=== PATIENT | male | born 1960 | race Caucasian/White ===

== ENCOUNTER 2022-02-11 09:35 | Outpatient (REF) | payer OTHER, SELFPAY ==
[2022-02-11 10:26] LABS: MANUAL DIFF FLAG NO
[2022-02-11 10:28] LABS: Basophils Absolute Auto 0.1 X10*3/uL (0.0-0.2); Eosinophils Absolute Auto 0.3 X10*3/uL (0.0-0.4); Eosinophils Percent Auto 5.1 % (0-4); Hemoglobin 12.3 g/dl (14.0-18.0); Imm Gran Abs Auto 0.01 X10*3/uL (0.00-0.03); Imm Gran Pct Auto 0.2 % (0.0-0.4); Lymphocytes Absolute Auto 1.1 X10*3/uL (1.2-4.9); Lymphocytes Percent Auto 17.8 % (20-40); Mean Corpuscular HGB Conc 34.2 g/dl (31.0-36.0); Mean Corpuscular Hemoglobin 30.3 pg (27.0-33.0); Mean Corpuscular Volume 88.7 fL (80.0-98.0); Mean Platelet Volume 10.5 fL (9.4-12.4); Monocytes Absolute Auto 0.6 X10*3/uL (0.1-1.2); Monocytes Percent Auto 8.8 % (2-11); Neutrophils Absolute Auto 4.2 x10*3/uL (2.0-8.3); Neutrophils Percent Auto 67.1 % (45-73); Platelet Count 322 X10*3/uL (160-400); Red Blood Count 4.06 X10*6/uL (4.60-5.80); Red Cell Distribution Width 13.3 % (11.0-16.0); White Blood Count 6.3 X10*3/uL (4.8-10.8)
[2022-02-11 10:44] LABS: Alanine Aminotransferase 15 U/L (0-40); Albumin Level 3.9 g/dL (3.5-5.0); Alkaline Phosphatase 113 U/L (39-117); Anion Gap 11 (12-20); Aspartate Amino Transferase 20 U/L (5-37); Bilirubin Total 0.4 mg/dL (0.0-1.0); Blood Urea Nitrogen 9 mg/dL (9-16); Calcium 8.6 mg/dL (8.4-10.2); Carbon Dioxide 24 mmol/L (22-29); Chloride 104 mmol/L (96-108); Cholesterol 152 mg/dL; Estimated Glomerular Filt Rate > 60; Glucose Fasting 90 mg/dL (60-99); HDL Cholesterol 69 mg/dL; LDL Cholesterol Calculated 75 mg/dl; Potassium 4.4 mmol/L (3.3-5.1); Sodium 135 mmol/L (135-145); Total Protein 6.3 g/dL (6.5-8.0); Triglycerides 40 mg/dL
[2022-02-11 10:56] LABS: Appearance Urine CLEAR; Color Urine STRAW; Glucose Urine UA NEG (NEG); Leukocyte Esterase Urine NEG (NEG); Nitrite Urine NEG (NEG); Specific Gravity - Urine <= 1.005 (1.005-1.025); Urine Blood TRACE (NEG); Urine Ketones NEG (NEG); Urine Protein NEG (NEG-TRACE)
[2022-02-11 11:03] LABS: Prostate Specific Antigen Scr 0.52 ng/mL (<0.05-4.0); TSH reflex Free T4 1.69 uIU/mL (0.32-4.0)
[2022-02-11 11:54] LABS: RBC Urine 0-2 /HPF (0); Squamous Epithelial Cell Urine TRACE /LPF; WBC Urine 0 /HPF (0-4)
== END 2022-02-11 09:36 | disposition home or self-care (01) ==
LOC: HO.WFDLDS 09:35
PROVIDERS: Visit Provider Family Medicine
DX: Z00.00 Encounter for general adult medical examination without abnormal findings (principal); Z12.5 Encounter for screening for malignant neoplasm of prostate
CPT/HCPCS: 36415; 80053; 80061; 81001; 84153; 84443; 85025

== ENCOUNTER 2022-06-01 09:52 | Outpatient (REF) | payer OTHER, SELFPAY ==
[2022-06-01 11:16] LABS: MANUAL DIFF FLAG NO
[2022-06-01 11:31] LABS: Basophils Absolute Auto 0.1 X10*3/uL (0.0-0.2); Basophils Percent Auto 0.9 % (0-2); Eosinophils Absolute Auto 0.2 X10*3/uL (0.0-0.4); Eosinophils Percent Auto 4.1 % (0-4); Hematocrit 37.3 % (42.0-52.0); Hemoglobin 12.4 g/dl (14.0-18.0); Imm Gran Abs Auto 0.02 X10*3/uL (0.00-0.03); Imm Gran Pct Auto 0.4 % (0.0-0.4); Lymphocytes Absolute Auto 1.6 X10*3/uL (1.2-4.9); Lymphocytes Percent Auto 28.3 % (20-40); Mean Corpuscular HGB Conc 33.2 g/dl (31.0-36.0); Mean Corpuscular Hemoglobin 29.3 pg (27.0-33.0); Mean Corpuscular Volume 88.2 fL (80.0-98.0); Mean Platelet Volume 10.5 fL (9.4-12.4); Monocytes Absolute Auto 0.6 X10*3/uL (0.1-1.2); Monocytes Percent Auto 10.5 % (2-11); Neutrophils Absolute Auto 3.1 x10*3/uL (2.0-8.3); Neutrophils Percent Auto 55.8 % (45-73); Platelet Count 325 X10*3/uL (160-400); Red Blood Count 4.23 X10*6/uL (4.60-5.80); Red Cell Distribution Width 13.2 % (11.0-16.0); Retic HGB Equivalent 35.6 pg (30.0-35.0); Reticulocyte Percent 1.1 % (0.5-1.8); Reticulocytes Absolute 0.047 X10*6/uL (0.026-0.095); White Blood Count 5.6 X10*3/uL (4.8-10.8)
[2022-06-01 12:41] LABS: Anion Gap 15 (12-20); Blood Urea Nitrogen 9 mg/dL (9-16); Calcium 8.9 mg/dL (8.4-10.2); Carbon Dioxide 23 mmol/L (22-29); Chloride 102 mmol/L (96-108); Estimated Glomerular Filt Rate > 60; Glucose Random 87 mg/dL (60-115); Iron 58 mcg/dL (45-160); Percent Iron Saturation 18 % (15-50); Potassium 4.6 mmol/L (3.3-5.1); Sodium 135 mmol/L (135-145); Total Iron Binding Capacity 322 mcg/dL (228-428); Unsaturated Iron Binding 264 ug/dL
[2022-06-01 12:47] LABS: Vitamin B12 223 pg/mL (200-900)
[2022-06-01 13:16] LABS: Ferritin 21 ng/mL (20-250)
== END 2022-06-01 09:53 | disposition home or self-care (01) ==
LOC: HO.WFDLDS 09:52
PROVIDERS: Visit Provider Family Medicine
DX: Z00.00 Encounter for general adult medical examination without abnormal findings (principal); E53.8 Deficiency of other specified B group vitamins; D64.9 Anemia, unspecified
CPT/HCPCS: 36415; 80048; 82607; 82728; 82746; 83540; 85025; 85045

== ENCOUNTER 2022-12-07 08:40 | Outpatient (REF) | payer MEDICARE, MEDICAID, SELFPAY ==
[2022-12-07 12:38] LABS: MANUAL DIFF FLAG NO
[2022-12-07 12:50] LABS: Basophils Absolute Auto 0.1 X10*3/uL (0.0-0.2); Basophils Percent Auto 0.9 % (0-2); Eosinophils Absolute Auto 0.1 X10*3/uL (0.0-0.4); Hematocrit 37.3 % (42.0-52.0); Hemoglobin 12.5 g/dl (14.0-18.0); Imm Gran Abs Auto 0.01 X10*3/uL (0.00-0.03); Imm Gran Pct Auto 0.2 % (0.0-0.4); Lymphocytes Absolute Auto 0.9 X10*3/uL (1.2-4.9); Lymphocytes Percent Auto 16.8 % (20-40); Mean Corpuscular HGB Conc 33.5 g/dl (31.0-36.0); Mean Corpuscular Hemoglobin 29.6 pg (27.0-33.0); Mean Corpuscular Volume 88.4 fL (80.0-98.0); Mean Platelet Volume 10.6 fL (9.4-12.4); Monocytes Absolute Auto 0.5 X10*3/uL (0.1-1.2); Monocytes Percent Auto 9.4 % (2-11); Neutrophils Percent Auto 70.7 % (45-73); Platelet Count 340 X10*3/uL (160-400); Red Blood Count 4.22 X10*6/uL (4.60-5.80); Red Cell Distribution Width 13.3 % (11.0-16.0); White Blood Count 5.6 X10*3/uL (4.8-10.8)
[2022-12-07 13:26] LABS: Anion Gap 11 (12-20); Blood Urea Nitrogen 9 mg/dL (9-16); Carbon Dioxide 26 mmol/L (22-29); Chloride 102 mmol/L (96-108); Estimated Glomerular Filt Rate > 60; Glucose Random 86 mg/dL (60-115); Potassium 4.4 mmol/L (3.3-5.1); Sodium 135 mmol/L (135-145)
== END 2022-12-07 08:41 | disposition home or self-care (01) ==
LOC: HO.WFDLDS 08:40
PROVIDERS: Visit Provider Family Medicine
DX: Z00.00 Encounter for general adult medical examination without abnormal findings (principal); I10 Essential (primary) hypertension; D64.9 Anemia, unspecified
CPT/HCPCS: 36415; 80048; 85025

== ENCOUNTER 2023-03-15 09:57 | Outpatient (REF) | payer MEDICARE, MEDICAID, SELFPAY ==
[2023-03-15 11:37] LABS: Appearance Urine Clear; Color Urine Yellow; Glucose Urine UA Negative (Negative); Leukocyte Esterase Urine Negative (Negative); Nitrite Urine Negative (Negative); Specific Gravity - Urine <= 1.005 (1.005-1.025); Urine Blood Negative (Negative); Urine Ketones Negative (Negative); Urine Protein Negative (Neg-Trace)
[2023-03-15 11:50] LABS: MANUAL DIFF FLAG NO
[2023-03-15 11:55] LABS: Basophils Absolute Auto 0.1 X10*3/uL (0.0-0.2); Eosinophils Absolute Auto 0.2 X10*3/uL (0.0-0.4); Eosinophils Percent Auto 4.6 % (0-4); Hematocrit 37.2 % (42.0-52.0); Hemoglobin 12.4 g/dl (14.0-18.0); Imm Gran Abs Auto 0.01 X10*3/uL (0.00-0.03); Imm Gran Pct Auto 0.2 % (0.0-0.4); Lymphocytes Absolute Auto 1.2 X10*3/uL (1.2-4.9); Lymphocytes Percent Auto 23.1 % (20-40); Mean Corpuscular HGB Conc 33.3 g/dl (31.0-36.0); Mean Corpuscular Hemoglobin 30.1 pg (27.0-33.0); Mean Corpuscular Volume 90.3 fL (80.0-98.0); Mean Platelet Volume 10.8 fL (9.4-12.4); Monocytes Absolute Auto 0.5 X10*3/uL (0.1-1.2); Monocytes Percent Auto 10.1 % (2-11); Neutrophils Absolute Auto 3.2 x10*3/uL (2.0-8.3); Platelet Count 290 X10*3/uL (160-400); Red Blood Count 4.12 X10*6/uL (4.60-5.80); Red Cell Distribution Width 13.2 % (11.0-16.0); White Blood Count 5.2 X10*3/uL (4.8-10.8)
[2023-03-15 13:27] LABS: Alanine Aminotransferase 21 U/L (0-40); Alkaline Phosphatase 114 U/L (39-117); Anion Gap 9 (12-20); Aspartate Amino Transferase 26 U/L (5-37); Bilirubin Total 0.3 mg/dL (0.0-1.0); Blood Urea Nitrogen 12 mg/dL (9-16); Calcium 8.8 mg/dL (8.4-10.2); Carbon Dioxide 26 mmol/L (22-29); Chloride 103 mmol/L (96-108); Cholesterol 151 mg/dL; Estimated Glomerular Filt Rate > 60; Glucose Fasting 74 mg/dL (60-99); HDL Cholesterol 75 mg/dL; LDL Cholesterol Calculated 70 mg/dl; Sodium 134 mmol/L (135-145); Total Protein 6.4 g/dL (6.5-8.0); Triglycerides 31 mg/dL
[2023-03-15 13:56] LABS: Creatinine Urine 23.55 mg/dL; Microalbumin Urine < 5.0 mg/L
== END 2023-03-15 09:58 | disposition home or self-care (01) ==
LOC: HO.WFDLDS 09:57
PROVIDERS: Visit Provider Family Medicine
DX: Z00.00 Encounter for general adult medical examination without abnormal findings (principal); Z12.5 Encounter for screening for malignant neoplasm of prostate; I10 Essential (primary) hypertension
CPT/HCPCS: 36415; 80053; 80061; 81003; 82043; 84153; 84443; 85025

== ENCOUNTER 2023-04-04 13:57 | Outpatient (AMB) | payer MEDICARE, MEDICAID, SELFPAY ==
--- NOTE | 2023-04-04 14:08 | MHC.PC.OV ---
Vital Signs 04/04/23 14:09 Height 5 ft 10 in Weight 154 lb 8 oz BMI 22.2 BP 130/78 Blood Pressure Location Lt brachial Position Sitting Respiration 12 Pulse 69 Pulse Source Pulse Oximeter Temp 98 F Temp Source Temporal Artery Scan Pulse Oximetry (%) 99 Oxygen Delivery Method Room Air Intake Visit Reasons: CPE with f/u labs and health maint. Intake Note: Patient does not have any question or concerns at this time. 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 HPI Details 62 y/o male presents for an extended exam with f/u labs and health maintenance. Labs were drawn 03/15/23. Reviewed labs with pt. Mild chronic anemia. Mildly low sodium at 134. Triglycerides 31. TC 151. LDL 70. HDL 75. Pt works on a healthy diet. He exercises daily. Pt reports osteoarthritis R knee. [facility] Medical History No pertinent past medical history Surgical History H/O arthroscopy of right knee Family History Other Substance use disorder Social History Housing: House Patient Tobacco Use Status: Former Tobacco user Tobacco use type: Cigarette Cigarette Packs Per Day: 1 Years Smoked: 25 Packs Per Year: 25 e-Cigarette/Vaping Use: Never Used Second Hand Smoke Exposure: No service: No Current occupational status: employed Current occupation: retail Current occupational exposures/hazards: No Cognitive needs: No Hearing needs: No Vision needs: Yes Questionnaire PHQ-9 Over the last 2 weeks, how often have you been bothered by any of the following problems? 1. Little interest or pleasure in doing things: not at all 2. Feeling down, depressed, or hopeless: not at all 3. Trouble falling or staying asleep, or sleeping too much: several days 4. Feeling tired or having little energy: several days 5. Poor appetite or overeating: several days 6. Feeling bad about yourself - or that you are a failure or have let yourself or your family down: not at all 7. Trouble concentrating on things, such as reading the newspaper or watching television: not at all 8. Moving or speaking so slowly that other people could have noticed. Or the opposite - being so fidgety or restless that you have been moving around a lot more than usual: not at all 9. Thoughts that you would be better off or of hurting yourself in some way: not at all Total score: 3 Source: Developed by Drs. Jameson Dasilva, Naty Barroso, Marck Pa and colleagues, with an educational emeterio from [employer]. Thrive Questionnaire Date Thrive assessed: 04/04/23 I am a: Patient What is your living situation today?: I have a steady place to live Within the past 12 months, did the food you bought not last and you didn't have the money to get more?: Never true Within the past 12 months, did you worry whether your food would run out before you got money to buy more?: Never true Do you have trouble paying for medicines?: No Do you have trouble getting transportation to medical appointments?: No Do you have trouble paying your heating and electricity bill?: No Do you have trouble taking care of your child, family member or friend?: No Do you have trouble with day-to-day activities such as bathing, preparing meals, shopping, managing finances, etc.?: No Are you currently unemployed and looking for a job?: No Are you interested in more education?: Yes Please select the resources that you would like help with: Education Currently or been in a relationship where the following occur: no concerns reported AUDIT C Alcohol Use Questionnaire (AUDIT-C) 1. How often do you have a drink containing alcohol?: Never 3. How often do you have six or more drinks on one occasion?: Never Total Score: 0 DIANNA-7 AMB Questionnaire DIANNA-7 Date DIANNA - 7 assessed: 04/04/23 Feeling nervous, anxious, or on edge: 1 = Several days Not being able to stop or control worryin = Not at all Worrying too much about different things: 1 = Several days Trouble relaxin = Several days Being so restless that it is hard to sit still: 0 = Not at all Becoming easily annoyed or irritable: 1 = Several days Feeling afraid as if something awful might happen: 0 = Not at all Total DIANNA-7 score (0-4 normal; 5-9 mild; 10-14 moderate; 15-21 severe): 4 Source: Developed by Drs. Jameson Dasilva, Naty Barroso, Marck Pa and colleagues, with an educational emeterio from [employer]. Review of Systems Const Denies chills, Denies fatigue, Denies fever(s), Denies headache(s) and Denies weakness Eyes Denies change in vision ENT Denies dizziness, Denies headache(s), Denies hearing loss, Denies nasal congestion, Denies sinus pain, Denies sinus pressure and Denies sore throat Card Denies chest pain, Denies lightheadedness, Denies dyspnea and Denies other (palpitations) Resp Denies cough, Denies dyspnea and Denies wheezing GI Denies abdominal pain, Denies melena, Denies hematochezia, Denies change in bowel habits, Denies dyspepsia and Denies nausea Denies hematuria and Denies dysuria Musc Denies abnormal gait, Denies myalgias, Denies arthralgias, Denies numbness and Denies tingling Skin/Breast Denies rash, Denies unusual bruising and Denies wounds Neuro Denies abnormal gait, Denies dizziness, Denies headache(s), Denies memory loss, Denies numbness, Denies Sensory deficit (Neuro), Denies tingling and Denies weakness Psych Denies anxiety, Denies depression and Denies memory loss Endo Denies cold intolerance, Denies fatigue, Denies heat intolerance, Denies polydipsia and Denies polyuria [place]/Lymph Denies easy bleeding and Denies easy bruising Aller/Immun Denies wheezing Physical exam (Primary Care) Vital Signs: Last Vital Signs Temp 98 F 08/14/23 14:09 Pulse 69 04/04/23 14:09 Resp 12 04/04/23 14:09 BP 130/78 04/04/23 14:09 Pulse Ox 99 04/04/23 14:09 Oxygen Delivery Method Room Air 04/04/23 14:09 BMI result Body Mass Index 22.2 Tobacco/Smoking Status: Tobacco use Status Tobacco use date assessed 07/26/22 04/04/23 14:15 Patient Tobacco Use Status Former Tobacco user 04/04/23 14:15 Tobacco use type Cigarette 04/04/23 14:15 e-Cigarette/Vaping Use Never Used 04/04/23 14:15 PHQ-9: PHQ-9 Score PHQ-9: Total score 3 04/04/23 14:24 Thrive Assessment: Date of Thrive Assessment Date Thrive assessed 04/04/23 04/04/23 14:19 Currently or been in a relationship where the following occur: no concerns reported Const General: no acute distress, well developed, alert and awake Nutritional Appearance: well nourished Orientation/consciousness: patient oriented x3 HENMT Head: Yes normocephalic and Yes atraumatic Ears: hearing grossly normal bilaterally and TM's normal bilaterally General nose exam: Normal external nose present and Normal nares present Mouth: Normal oral and palatal mucosa present and moist mucous membranes Teeth and gingiva: dentition normal Throat: Yes posterior oropharynx normal Eyes General: appearance normal, both eyes and all related structures Pupils: Equal, round and reactive pupils present and Pupil accommodation reflex normal EOM: EOMs intact bilaterally Neck Neck: Yes normal visual inspection, Yes no lymphadenopathy and Yes trachea midline Thyroid: Thyroid normal Carotids: no bruits Lymphatic: no lymphadenopathy noted Chest Chest palpation & inspection: normal inspection of the chest Resp Effort & Inspection: normal respiratory effort Auscultation: clear to auscultation bilaterally Cardio Rate: regular rate Rhythm: regular rhythm Heart sounds: S1 normal heart sound present, S2 normal heart sound present, no gallops, no murmurs and no rubs Bruits: no abdominal aortic bruits and no carotid bruits GI Palpation (GI): No Abdominal aortic bruit present, Soft to palpation, nontender, No hepatosplenomegaly present and No Rebound tenderness present Auscultation: normal bowel sounds General: Yes no CVA tenderness Back/Spine/Pelvis Back: no CVA tenderness Cervical Spine: cervical ROM normal and No Cervical spine tenderness Thoracic/Lumbar Spine: thoraco-lumbar ROM normal, No pain with thoraco-lumbar ROM, No thoracic spinal tenderness and No lumbar spinal tenderness Skin Lesions: no lesions Rashes: no rashes Trauma: no lacerations or abrasions Wounds: no wounds Nails: normal Neuro General: patient oriented x3 Cranial nerves: Yes Equal, round and reactive pupils present Cognition (Neuro): normal cognition Gait exam (Neuro): Normal gait present Motor exam (neuro): 5/5 motor strength present throughout Sensory Exam: No Sensory deficit (Neuro) Deep tendon reflexes (DTR's): Right patellar reflex intensity grade: 2+ and Left patellar reflex intensity grade: 2+ Extrem General: Yes normal to inspection and No edema Psych Appearance: grossly normal Affect: normal affect Attitude: cooperative Thought process: Normal thought process present Assessment and Plan Assessment & Plan (1) Mild anemia: Code(s): D64.9 - Anemia, unspecified Plan: Stable Will continue to follow (2) Hypertension: Code(s): I10 - Essential (primary) hypertension Plan: Blood pressure mildly elevated We can follow this Encouraged healthy diet and exercise (3) Hyponatremia: Code(s): E87.1 - Hypo-osmolality and hyponatremia Plan: Mild hyponatremia which may be secondary to his medications Encouraged regular meals (4) Right knee pain: Code(s): M25.561 - Pain in right knee Plan: Primarily secondary to osteoarthritis Can continue using knee brace for support but encouraged exercise of legs and continue cycling as tolerated (5) Screening for colon cancer: Code(s): Z12.11 - Encounter for screening for malignant neoplasm of colon Plan: Patient says he had a Cologuard test about 2 years ago and that it was normal Will check Cologuard test again next year (6) Screening for prostate cancer: Code(s): Z12.5 - Encounter for screening for malignant neoplasm of prostate Plan: PSA was within normal limits (7) Adult general medical exam: Code(s): Z00.00 - Encounter for general adult medical examination without abnormal findings Plan 62-year-old male presents for an extended exam Encouraged healthy diet with active lifestyle and plenty of exercise. Patient continues cycling and regular exercise. Coding Level of Care Code Est Pt Level 4 (07227) Diagnoses Mild anemia D64.9 Hypertension I10 Hyponatremia E87.1 Right knee pain M25.561 Screening for colon cancer Z12.11 Screening for prostate cancer Z12.5 Adult general medical exam Z00.00
[2023-04-04 14:09] VITALS: BP 130/78; PULSE 69; RESP 12; TEMP 36.6; O2SAT 99; BMI 22.2
== END 2023-04-04 14:37 | disposition home or self-care (01) ==
PROVIDERS: Visit Provider Family Medicine
DX: D64.9 Anemia, unspecified (principal); I10 Essential (primary) hypertension; E87.1 Hypo-osmolality and hyponatremia; M25.561 Pain in right knee; Z12.11 Encounter for screening for malignant neoplasm of colon; Z12.5 Encounter for screening for malignant neoplasm of prostate; Z00.00 Encounter for general adult medical examination without abnormal findings
CPT/HCPCS: 99214

== ENCOUNTER 2024-03-13 10:07 | Outpatient (REF) | payer MEDICARE, MEDICAID, SELFPAY ==
[2024-03-13 11:15] LABS: MANUAL DIFF FLAG NO
[2024-03-13 11:24] LABS: Appearance Urine Clear; Color Urine Yellow; Glucose Urine UA Negative (Negative); Leukocyte Esterase Urine Negative (Negative); Nitrite Urine Negative (Negative); PH 6.5 (5.0-9.0); Specific Gravity - Urine <= 1.005 (1.005-1.025); Urine Blood Negative (Negative); Urine Ketones Negative (Negative); Urine Protein Negative (Neg-Trace)
[2024-03-13 11:28] LABS: Basophils Percent Auto 0.7 % (0-2); Eosinophils Absolute Auto 0.1 X10*3/uL (0.0-0.4); Eosinophils Percent Auto 2.4 % (0-4); Hematocrit 37.4 % (42.0-52.0); Hemoglobin 12.6 g/dl (14.0-18.0); Imm Gran Abs Auto 0.01 X10*3/uL (0.00-0.03); Imm Gran Pct Auto 0.2 % (0.0-0.4); Lymphocytes Absolute Auto 1.3 X10*3/uL (1.2-4.9); Mean Corpuscular HGB Conc 33.7 g/dl (31.0-36.0); Mean Corpuscular Hemoglobin 30.7 pg (27.0-33.0); Mean Platelet Volume 10.9 fL (9.4-12.4); Monocytes Absolute Auto 0.5 X10*3/uL (0.1-1.2); Monocytes Percent Auto 8.7 % (2-11); Neutrophils Absolute Auto 3.6 x10*3/uL (2.0-8.3); Platelet Count 278 X10*3/uL (160-400); Red Blood Count 4.11 X10*6/uL (4.60-5.80); Red Cell Distribution Width 13.9 % (11.0-16.0); White Blood Count 5.5 X10*3/uL (4.8-10.8)
[2024-03-13 12:19] LABS: Alanine Aminotransferase 17 U/L (0-40); Albumin Level 4.2 g/dL (3.5-5.0); Alkaline Phosphatase 86 U/L (39-117); Anion Gap 12 (12-20); Aspartate Amino Transferase 20 U/L (5-37); Bilirubin Total 0.4 mg/dL (0.0-1.0); Blood Urea Nitrogen 8 mg/dL (9-16); Calcium 9.4 mg/dL (8.4-10.2); Carbon Dioxide 25 mmol/L (22-29); Chloride 100 mmol/L (96-108); Cholesterol 153 mg/dL (<200); Estimated Glomerular Filt Rate > 60; Glucose Fasting 85 mg/dL (60-99); HDL Cholesterol 72 mg/dL (>40); LDL Cholesterol Calculated 72 mg/dL (<100); Potassium 4.2 mmol/L (3.3-5.1); Sodium 133 mmol/L (135-145); Total Protein 6.7 g/dL (6.5-8.0); Triglycerides 46 mg/dL (<150)
[2024-03-13 12:23] LABS: Creatinine Urine 20.45 mg/dL; Microalbumin Urine < 5.0 mg/L
[2024-03-13 12:39] LABS: TSH reflex Free T4 1.94 uIU/mL (0.32-4.0)
== END 2024-03-13 10:08 | disposition home or self-care (01) ==
LOC: HO.WFDLDS 10:07
PROVIDERS: Visit Provider Family Medicine
DX: Z00.00 Encounter for general adult medical examination without abnormal findings (principal); I10 Essential (primary) hypertension
CPT/HCPCS: 36415; 80053; 80061; 81003; 82043; 82570; 84443; 85025

== ENCOUNTER 2024-04-24 10:06 | Outpatient (AMB) | payer MEDICARE, MEDICAID, SELFPAY ==
--- NOTE | 2024-04-24 10:11 | MHC.PC.OV ---
Vital Signs 04/24/24 10:19 Height 5 ft 10 in Weight 156 lb 2 oz BMI 22.4 BP 148/88 H Blood Pressure Location Rt brachial Position Sitting Respiration 16 Pulse 54 Pulse Source Pulse Oximeter Temp 97.4 F Temp Source Oral Pulse Oximetry (%) 97 Oxygen Delivery Method Room Air Intake Visit Reasons: Extended exam with f/u labs and health maintenance Intake Note: patient here for extended exam with follow up labs and health maintenance. [employer] Consultant Required: No Allergies haloperidol [From Haldol] Allergy (Severe, Verified 04/24/24 10:27) Involuntary Spasms Penicillins Allergy (Intermediate, Verified 04/24/24 10:27) Hives Medication List - Last Reconciled 04/24/24 by Gerald Bar CNP benztropine 0.5 mg PO DAILY perphenazine 2 mg PO BID Tobacco use date assessed: 04/24/24 Dental Screening Dental Screen Date: 04/24/24 Did you have a dental visit in the last 12 months?: No Did you have a dental problem in the last 6 months where you did not have access to dental care?: No Was dental information given to patient?: No HPI HPI Comments History of Present Illness Details 63-year-old male presents for an extended physical exam He is a patient of Dr. Chery He has history of hypertension (not treated with medication), mild chronic anemia, mild hyponatremia, osteoarthritis of the right knee, and schizophrenia He notes that he was on Benazepril for a short period 2 years ago; his blood pressure was controlled He admits to taking his medications as prescribed without adverse reactions He is not followed by a therapist or psychiatrist He states that he generally eats and sleeps well. He exercises routinely Former smoker. Does not drink alcohol. No recreational drug He notes that his last Cologuard test was 3 years ago: negative He notes that he has never been vaccinated for shingles He has not seen a dentist for over a year He has not had a tetanus vaccine in over 10 years He has not had an eye exam in a long time He notes that he is followed by [facility] and has been receiving plasma and stem-cells injections in his right knee with good effects PFSH Medical History No pertinent past medical history Surgical History H/O arthroscopy of right knee Family History Other Substance use disorder Social History Housing: House Patient Tobacco Use Status: Former Tobacco user Tobacco use type: Cigarette Cigarette Packs Per Day: 1 Years Smoked: 25 e-Cigarette/Vaping Use: Never Used Second Hand Smoke Exposure: No service: No Current occupational status: employed Current occupation: [employer] Current occupational exposures/hazards: No Cognitive needs: No Hearing needs: No Vision needs: Yes Questionnaire PHQ-9 Over the last 2 weeks, how often have you been bothered by any of the following problems? 1. Little interest or pleasure in doing things: not at all 2. Feeling down, depressed, or hopeless: not at all 3. Trouble falling or staying asleep, or sleeping too much: not at all 4. Feeling tired or having little energy: not at all 5. Poor appetite or overeating: not at all 6. Feeling bad about yourself - or that you are a failure or have let yourself or your family down: not at all 7. Trouble concentrating on things, such as reading the newspaper or watching television: not at all 8. Moving or speaking so slowly that other people could have noticed. Or the opposite - being so fidgety or restless that you have been moving around a lot more than usual: not at all 9. Thoughts that you would be better off or of hurting yourself in some way: not at all Total score: 0 Depression Screening Interpretation: Negative Depression Screening Done: Yes 41463 - PHQ-9 Billing: Yes Source: Developed by Drs. Jameson Dasilva, Naty Barroso, Marck Pa and colleagues, with an educational emeterio from [employer]. Thrive Questionnaire Date Thrive assessed: 04/24/24 I am a: Patient What is your living situation today?: I have a steady place to live Within the past 12 months, did the food you bought not last and you didn't have the money to get more?: Never true Within the past 12 months, did you worry whether your food would run out before you got money to buy more?: Never true Do you have trouble paying for medicines?: No Do you have trouble getting transportation to medical appointments?: No Do you have trouble paying your heating and electricity bill?: No Do you have trouble taking care of your child, family member or friend?: No Do you have trouble with day-to-day activities such as bathing, preparing meals, shopping, managing finances, etc.?: No Are you currently unemployed and looking for a job?: No Are you interested in more education?: Yes Please select the resources that you would like help with: Education Currently or been in a relationship where the following occur: No concerns reported THRIVE Score: 0 AUDIT C Alcohol Use Questionnaire (AUDIT-C) 1. How often do you have a drink containing alcohol?: Never Total Score: 0 Score Reviewed/Action Taken: Yes DIANNA-7 AMB Questionnaire DIANNA-7 Date DIANNA - 7 assessed: 04/24/24 Feeling nervous, anxious, or on edge: 0 = Not at all Not being able to stop or control worryin = Not at all Worrying too much about different things: 0 = Not at all Trouble relaxin = Not at all Being so restless that it is hard to sit still: 0 = Not at all Becoming easily annoyed or irritable: 0 = Not at all Feeling afraid as if something awful might happen: 0 = Not at all Total DIANNA-7 score (0-4 normal; 5-9 mild; 10-14 moderate; 15-21 severe): 0 Source: Developed by Drs. Jameson Dasilva, Naty Barroso, Marck Pa and colleagues, with an educational emeterio from [employer]. DIANNA-7 Assessment Billing DIANNA-7 Assessment Tool: DIANNA-7 Assessment 14068 Review of Systems Const Details: Denies chills, Denies fatigue, Denies fever(s), Denies headache(s) and Denies weakness HEENT Denies change in vision, Denies dizziness, Denies headache(s), Denies hearing loss, Denies nasal congestion, Denies sinus pain, Denies sinus pressure and Denies sore throat Card Denies chest pain, Denies lightheadedness, Denies dyspnea and Denies other (palpitations) Resp Denies cough, Denies dyspnea and Denies wheezing GI Denies abdominal pain, Denies melena, Denies hematochezia, Denies change in bowel habits, Denies dyspepsia and Denies nausea Denies hematuria and Denies dysuria Musc Denies abnormal gait, Denies myalgias, Denies arthralgias, Denies numbness and Denies tingling Skin/Breast Denies rash, Denies unusual bruising and Denies wounds Neuro Denies abnormal gait, Denies dizziness, Denies headache(s), Denies memory loss, Denies numbness, Denies Sensory deficit (Neuro), Denies tingling and Denies weakness Psych Denies anxiety, Denies depression and Denies memory loss Endo Denies cold intolerance, Denies fatigue, Denies heat intolerance, Denies polydipsia and Denies polyuria [place]/Lymph Denies easy bleeding and Denies easy bruising Aller/Immun Denies wheezing Physical exam (Primary Care) Vital Signs: Last Vital Signs Temp 97.4 F 04/24/24 10:19 Pulse 54 04/24/24 10:19 Resp 16 04/24/24 10:19 BP 148/88 H 04/24/24 10:19 Pulse Ox 97 04/24/24 10:19 Oxygen Delivery Method Room Air 04/24/24 10:19 BMI result Body Mass Index 22.4 Tobacco/Smoking Status: Tobacco use Status Tobacco use date assessed 04/24/24 04/24/24 10:17 Patient Tobacco Use Status Former Tobacco user 04/24/24 10:12 Tobacco use type Cigarette 04/24/24 10:12 e-Cigarette/Vaping Use Never Used 04/24/24 10:12 PHQ-9: PHQ-9 Score PHQ-9: Total score 0 04/24/24 10:28 Depression Screening Interpretation: Negative Thrive Assessment: Date of Thrive Assessment Date Thrive assessed 04/24/24 04/24/24 10:19 Currently or been in a relationship where the following occur: No concerns reported Const Other: General: no acute distress, well developed, alert and awake Nutritional Appearance: well nourished Orientation/consciousness: patient oriented x3 HENMT Head: Yes normocephalic and Yes atraumatic Ears: hearing grossly normal bilaterally and TM's normal bilaterally General nose exam: Normal external nose present and Normal nares present Mouth: Normal oral and palatal mucosa present and moist mucous membranes Teeth and gingiva: dentition normal Throat: Yes oropharynx normal Eyes Pupils: Equal, round and reactive pupils present and Pupil accommodation reflex normal EOM: EOMs intact bilaterally Neck Neck: Yes normal visual inspection, Yes no lymphadenopathy and Yes trachea midline Thyroid: Thyroid normal Carotids: no bruits Lymphatic: no lymphadenopathy noted Chest Chest palpation & inspection: normal inspection of the chest Resp Effort & Inspection: normal respiratory effort Auscultation: clear to auscultation bilaterally Cardio Rate: regular rate Rhythm: regular rhythm Heart sounds: S1 normal heart sound present, S2 normal heart sound present, no gallops, no murmurs and no rubs Bruits: no abdominal aortic bruits and no carotid bruits GI Palpation (GI): No Abdominal aortic bruit present, Soft to palpation, nontender, No hepatosplenomegaly present and No Rebound tenderness present Auscultation: normal bowel sounds General: Yes no CVA tenderness Back/Spine/Pelvis Back: no CVA tenderness Cervical Spine: cervical ROM normal and No Cervical spine tenderness Thoracic/Lumbar Spine: thoraco-lumbar ROM normal, No pain with thoraco-lumbar ROM, No thoracic spinal tenderness and No lumbar spinal tenderness Skin General: warm and dry. Normal skin color. Normal skin turgor Lesions: no lesions Rashes: no rashes Trauma: no lacerations or abrasions Wounds: no wounds Nails: normal Neuro General: patient oriented x3, gait normal and CN's II-XI intact bilaterally Cranial nerves: Yes Equal, round and reactive pupils present Cognition (Neuro): normal cognition Gait exam (Neuro): Normal gait present Motor exam (neuro): 5/5 motor strength present throughout Sensory Exam: No Sensory deficit (Neuro) Deep tendon reflexes (DTR's): Right patellar reflex intensity grade: 2+ and Left patellar reflex intensity grade: 2+ Extrem General: Yes normal to inspection, No edema and No calf tenderness Psych Appearance: grossly normal Affect: normal affect Attitude: cooperative Thought process: Normal thought process present Immunizations Boostrix Tdap 2.5 Lf unit-8 mcg-5 Lf/0.5 mL intramuscular syringe Performing Provider: Gerald Bar CNP [place] [facility] Administered by: Yudelka Delgado RN on 04/24/24 10:59 Dose Route Admin Location Dispensed Lot Number Expiration Date NDC [employer] 0.5 mL IM Left Deltoid 0.5 mL [id number] 05/30/26 [id number] [employer] VIS Given Date VIS Provided VIS Publication Date 04/24/24 Single Vaccine 21 Eligibility Eligibility Date Funding Source Not [facility] Eligible 04/24/24 Private Assessment and Plan Assessment & Plan (1) Adult general medical exam: Code(s): Z00.00 - Encounter for general adult medical examination without abnormal findings Plan: No significant physical restrictions or limitations noted Continue current treatment regimen Healthy diet and routine exercise encouraged Encouraged to establish care with a dentist for routine dental care Follow-up with PCP in 1 month for hypertension or return sooner with symptoms or concerns Verbalized understanding and agreed with the treatment plan (2) Hypertension: Code(s): I10 - Essential (primary) hypertension Plan: Resting blood pressure is 148/88, above goal of less than 140/90 Will start lisinopril 10 mg daily. Advised to take as prescribed. Instructed on the risks, benefits, potential adverse reactions of the medications Follow-up with PCP in 1 month or sooner with symptoms or concerns Verbalized understanding and agreed with treatment plan (3) Hyponatremia: Code(s): E87.1 - Hypo-osmolality and hyponatremia Plan: Recent labs reviewed with the patient Mild hyponatremia which may be secondary to his medications Encouraged regular meals (4) Mild anemia: Code(s): D64.9 - Anemia, unspecified Plan: Stable (5) Schizophrenia: Code(s): F20.9 - Schizophrenia, unspecified Plan: Controlled Continue to take benztropine and perphenazine as prescribed Follow-up with symptoms or concerns Verbalized understanding and agreed with the plan (6) Routine eye exam: Code(s): Z01.00 - Encounter for examination of eyes and vision without abnormal findings Plan: He has not had an eye exam in a long time Referred to [facility] [place] ophthalmology for routine eye exam (7) Screening for colon cancer: Code(s): Z12.11 - Encounter for screening for malignant neoplasm of colon Plan: His last Cologuard test was 3 years ago Cologuard test ordered (8) Vaccine counseling: Code(s): Z71.85 - Encounter for immunization safety counseling Plan: It was never been vaccinated for shingles. Instructed on importance of vaccinations and encouraged to get vaccinated for shingles. He may request the vaccines from his local pharmacy. Verbalized understanding and agreed with the plan (9) Vaccine for tetanus toxoid: Code(s): Z23 - Encounter for immunization Plan: He has not had a tetanus vaccine in over 10 years The nurse administered tetanus vaccine today Orders: Orders TDaP Immunization Today Z23 - Encounter for immunization Referrals Ophthalmology Referral Z01.00 - Encounter for examination of eyes and vision without abnormal findings Cologuard Test Z12.11 - Encounter for screening for malignant neoplasm of colon Medications: New lisinopril 10 mg PO DAILY 30 days 30 tabs 3RF Coding Level of Care Code Est Pt Level 4 (05811) Est Pt Prev Care 40-64y(09408) Diagnoses Adult general medical exam Z00.00 Hypertension I10 Hyponatremia E87.1 Mild anemia D64.9 Schizophrenia F20.9 Routine eye exam Z01.00 Screening for colon cancer Z12.11 Vaccine counseling Z71.85 Vaccine for tetanus toxoid Z23 Additional Codes DIANNA-7 Assessment Billing - DIANNA-7 Assessment Tool: DIANNA-7 Assessment [id number] ([id number])
[2024-04-24 10:19] VITALS: BP 148/88; PULSE 54; RESP 16; TEMP 36.3; O2SAT 97; BMI 22.4
== END 2024-04-24 11:10 | disposition home or self-care (01) ==
PROVIDERS: PCP Family Medicine; Visit Provider Nurse Practitioner Family
DX: Z00.00 Encounter for general adult medical examination without abnormal findings (principal); I10 Essential (primary) hypertension; E87.1 Hypo-osmolality and hyponatremia; Z23 Encounter for immunization; F20.9 Schizophrenia, unspecified; D64.9 Anemia, unspecified; Z12.11 Encounter for screening for malignant neoplasm of colon; Z71.85 Encounter for immunization safety counseling
CPT/HCPCS: 90471; 90715; 99214; 99396

== ENCOUNTER 2024-06-11 14:24 | Outpatient (AMB) | payer MEDICARE, MEDICAID, SELFPAY ==
--- NOTE | 2024-06-11 14:40 | A.OFFPC_ITS ---
Vital Signs 06/11/24 14:41 Height 5 ft 10 in Weight 159 lb 6 oz BMI 22.9 BP 152/73 H Blood Pressure Location Rt brachial Position Sitting Respiration 16 Pulse 60 Pulse Source Pulse Oximeter Temp 98.1 F Temp Source Temporal Artery Scan Pulse Oximetry (%) 100 Oxygen Delivery Method Room Air Intake Visit Reasons: 1 MONTH F/U HTN Intake Note: f/u HTN Allergies haloperidol [From Haldol] Allergy (Severe, Verified 06/11/24 14:40) Involuntary Spasms Penicillins Allergy (Intermediate, Verified 06/11/24 14:40) Hives Tobacco use date assessed: 04/24/24 Dental Screening Dental Screen Date: 04/24/24 HPI 1 MONTH F/U HTN HPI Details 64 y/o male presents to f/u hypertension . Blood pressure had been high last office visit. Had been started on lisinopril. Notes the first time he took lisinopril he felt groggy and noticed blood in his stool - he did note he was constipated. Blood pressure today 152/73, 60p. He notes he took lisinopril last night. HPI Comments History of Present Illness Details Documentation assistance for Jung Chery MD, was provided by Baldev Lewis,? Back Tender [employer]rier on 06/11/2024 at 3:18 PM EST. I, Dr. Chery, have read, observed, and verified documentation. FOR[facility]LY [facility], [facility] Medical History No pertinent past medical history Surgical History H/O arthroscopy of right knee Family History Other Substance use disorder Social History Housing: House Patient Tobacco Use Status: Former Tobacco user Tobacco use type: Cigarette Cigarette Packs Per Day: 1 Years Smoked: 25 e-Cigarette/Vaping Use: Never Used Second Hand Smoke Exposure: No service: No Current occupational status: employed Current occupation: retail Current occupational exposures/hazards: No Cognitive needs: No Hearing needs: No Vision needs: Yes Questionnaire PHQ-9 Over the last 2 weeks, how often have you been bothered by any of the following problems? 1. Little interest or pleasure in doing things: not at all 2. Feeling down, depressed, or hopeless: not at all 3. Trouble falling or staying asleep, or sleeping too much: not at all 4. Feeling tired or having little energy: not at all 5. Poor appetite or overeating: not at all 6. Feeling bad about yourself - or that you are a failure or have let yourself or your family down: not at all 7. Trouble concentrating on things, such as reading the newspaper or watching television: not at all 8. Moving or speaking so slowly that other people could have noticed. Or the opposite - being so fidgety or restless that you have been moving around a lot more than usual: not at all 9. Thoughts that you would be better off or of hurting yourself in some way: not at all Total score: 0 Source: Developed by Drs. Jameson Dasilva, Naty Barroso, Marck Pa and colleagues, with an educational emeterio from [employer]. Thrive Questionnaire Date Thrive assessed: 04/24/24 I am a: Patient What is your living situation today?: I have a steady place to live Within the past 12 months, did the food you bought not last and you didn't have the money to get more?: Never true Within the past 12 months, did you worry whether your food would run out before you got money to buy more?: Never true Do you have trouble paying for medicines?: No Do you have trouble getting transportation to medical appointments?: No Do you have trouble paying your heating and electricity bill?: No Do you have trouble taking care of your child, family member or friend?: No Do you have trouble with day-to-day activities such as bathing, preparing meals, shopping, managing finances, etc.?: No Are you currently unemployed and looking for a job?: No Are you interested in more education?: I choose not to answer this question Please select the resources that you would like help with: None Currently or been in a relationship where the following occur: No concerns reported THRIVE Score: 0 AUDIT C Alcohol Use Questionnaire (AUDIT-C) 1. How often do you have a drink containing alcohol?: Never Total Score: 0 DIANNA-7 AMB Questionnaire DIANNA-7 Date DIANNA - 7 assessed: 04/24/24 Feeling nervous, anxious, or on edge: 0 = Not at all Not being able to stop or control worryin = Not at all Worrying too much about different things: 0 = Not at all Trouble relaxin = Not at all Being so restless that it is hard to sit still: 0 = Not at all Becoming easily annoyed or irritable: 0 = Not at all Feeling afraid as if something awful might happen: 0 = Not at all Total DIANNA-7 score (0-4 normal; 5-9 mild; 10-14 moderate; 15-21 severe): 0 Source: Developed by Drs. Jameson Dasilva, Naty Barroso, Marck Pa and colleagues, with an educational emeterio from [employer]. Review of Systems Const Denies chills, Denies fatigue, Denies fever(s), Denies headache(s) and Denies weakness ENT Denies dizziness and Denies headache(s) Card Denies dyspnea Resp Denies cough, Denies dyspnea, Denies wheezing and Denies other (shortness of breath) Musc Denies numbness and Denies tingling Neuro Denies dizziness, Denies headache(s), Denies numbness, Denies tingling and Denies weakness Psych Denies anxiety and Denies depression Endo Denies fatigue Aller/Immun Denies wheezing Physical exam (Primary Care) Vital Signs: Last Vital Signs Temp 98.1 F 06/11/24 14:41 Pulse 60 06/11/24 14:41 Resp 16 06/11/24 14:41 BP 152/73 H 06/11/24 14:41 Pulse Ox 100 06/11/24 14:41 Oxygen Delivery Method Room Air 06/11/24 14:41 BMI result Body Mass Index 22.9 Tobacco/Smoking Status: Tobacco use Status Tobacco use date assessed 04/24/24 06/11/24 14:44 Patient Tobacco Use Status Former Tobacco user 06/11/24 14:44 Tobacco use type Cigarette 06/11/24 14:44 e-Cigarette/Vaping Use Never Used 06/11/24 14:44 PHQ-9: PHQ-9 Score PHQ-9: Total score 0 06/11/24 15:17 Thrive Assessment: Date of Thrive Assessment Date Thrive assessed 04/24/24 06/11/24 14:44 Currently or been in a relationship where the following occur: No concerns reported Const General: well developed; No acute distress Nutritional Appearance: well nourished Orientation/consciousness: patient oriented x3 [facility] Head: Yes normocephalic and Yes atraumatic Eyes General: appearance normal, both eyes and all related structures Pupils: Equal, round and reactive pupils present EOM: EOMs intact bilaterally Resp Effort & Inspection: normal respiratory effort Auscultation: clear to auscultation bilaterally Cardio Rate: regular rate Rhythm: regular rhythm Heart sounds: S1 normal heart sound present, S2 normal heart sound present, no gallops, no murmurs and no rubs Neuro General: patient oriented x3 and gait normal Cranial nerves: Yes Equal, round and reactive pupils present Psych Affect: normal affect Coding Level of Care Code Est Pt Level 3 (00024) Diagnoses Hypertension I10 Blood in stool K92.1 Assessment & Plan Assessment & Plan (1) Hypertension: Code(s): I10 - Essential (primary) hypertension Category: Medical Plan: Blood?pressure?is?high.??Goal?is?less?than?140/90 He?has?not?been?taking?the?lisinopril?much. He?also?noted?that he?did?not?feel?any?problems?with?his?blood?pressures?as?high?as?they?are. We?discussed?that?he?is?unlikely?to?feel?any?adverse?effects?from?hypertension?b ut?that?it?could?still?increase?the?risk?of?heart?attacks?and?strokes. Patient?agrees?to?take?medication?and?return ?for?a?nurse?visit?at?the?end?of?this?week?or?next?week. Will?adjust?his?medication?if?still?not?well?controlled. He?can?follow-up?with?me?in?a?few?months (2) Blood in stool: Code(s): K92.1 - Melena Category: Medical Plan: Patient?had?noted?that?h e?had?a?single?episode?of?blood?on?stool?and?paper?but?not?feeling?bowl. He?notes?this?was?after?constipation. Likely?small?anal?tear?or?hemorrhoid?injury. Keep?stools?soft He?can?let?me?know?if?this?happens?again.
[2024-06-11 14:41] VITALS: BP 152/73; PULSE 60; RESP 16; TEMP 36.7; O2SAT 100; BMI 22.9
== END 2024-06-11 15:29 | disposition home or self-care (01) ==
PROVIDERS: PCP Family Medicine; Visit Provider Family Medicine
DX: I10 Essential (primary) hypertension (principal); K92.1 Melena

== ENCOUNTER → 2024-06-11 14:24 | Outpatient (BNVA) | payer MEDICARE, MEDICAID, SELFPAY | PROVIDERS: PCP Family Medicine; Visit Provider Family Medicine | DX: I10 Essential (primary) hypertension (principal); K92.1 Melena | CPT/HCPCS: 96127; 99212 ==

== ENCOUNTER 2024-09-03 14:23 | Outpatient (AMB) | payer MEDICARE, MEDICAID, SELFPAY ==
--- NOTE | 2024-09-03 14:33 | MHC.PC.OV ---
Vital Signs 09/03/24 14:39 Height 5 ft 10 in Weight 159 lb 2 oz BMI 22.8 BP 152/82 H Blood Pressure Location Rt brachial Position Sitting Respiration 16 Pulse 61 Pulse Source Pulse Oximeter Temp 97.8 F Temp Source Oral Pulse Oximetry (%) 98 Oxygen Delivery Method Room Air Intake Visit Reasons: f/u hypertension, chronic conditions Intake Note: patient here for HTN and chronic conditions Pond Sawyer Required: No Allergies haloperidol [From Haldol] Allergy (Severe, Verified 09/03/24 14:35) Involuntary Spasms Penicillins Allergy (Intermediate, Verified 09/03/24 14:35) Hives Medication List - Last Reconciled 09/03/24 by Jung Chery MD benztropine 0.5 mg PO DAILY lisinopril 10 mg PO DAILY 30 days perphenazine 2 mg PO BID Tobacco use date assessed: 09/03/24 Fall risk assessment: No Falls in past year Last assessed Fall Risk: 09/03/24 Dental Screening Dental Screen Date: 09/03/24 Did you have a dental visit in the last 12 months?: Yes Did you have a dental problem in the last 6 months where you did not have access to dental care?: No Was dental information given to patient?: No HPI f/u hypertension, chronic conditions HPI Details 64 y/o male presents to f/u hypertension. Blood pressure today 152/82, 61p. He is on losartan 10mg daily. [facility] Medical History No pertinent past medical history Surgical History H/O arthroscopy of right knee Family History Other Substance use disorder Social History Housing: House Patient Tobacco Use Status: Former Tobacco user Tobacco use type: Cigarette Cigarette Packs Per Day: 1 Years Smoked: 25 e-Cigarette/Vaping Use: Never Used Second Hand Smoke Exposure: No service: No Current occupational status: employed Current occupation: retail Current occupational exposures/hazards: No Cognitive needs: No Hearing needs: No Vision needs: Yes Questionnaire PHQ-9 Over the last 2 weeks, how often have you been bothered by any of the following problems? 1. Little interest or pleasure in doing things: not at all 2. Feeling down, depressed, or hopeless: not at all 3. Trouble falling or staying asleep, or sleeping too much: not at all 4. Feeling tired or having little energy: not at all 5. Poor appetite or overeating: not at all 6. Feeling bad about yourself - or that you are a failure or have let yourself or your family down: not at all 7. Trouble concentrating on things, such as reading the newspaper or watching television: not at all 8. Moving or speaking so slowly that other people could have noticed. Or the opposite - being so fidgety or restless that you have been moving around a lot more than usual: not at all 9. Thoughts that you would be better off or of hurting yourself in some way: not at all Total score: 0 Depression Screening Interpretation: Negative Depression Screening Done: Yes 65370 - PHQ-9 Billing: Yes Source: Developed by Drs. Jameson Dasilva, Naty Barroso, Marck Pa and colleagues, with an educational emeterio from [employer]. Thrive Questionnaire Date Thrive assessed: 09/03/24 I am a: Patient What is your living situation today?: I have a steady place to live Within the past 12 months, did the food you bought not last and you didn't have the money to get more?: I choose not to answer this question Within the past 12 months, did you worry whether your food would run out before you got money to buy more?: Never true Do you have trouble paying for medicines?: No Do you have trouble getting transportation to medical appointments?: No Do you have trouble paying your heating and electricity bill?: No Do you have trouble taking care of your child, family member or friend?: No Do you have trouble with day-to-day activities such as bathing, preparing meals, shopping, managing finances, etc.?: No Are you currently unemployed and looking for a job?: No Are you interested in more education?: I choose not to answer this question Please select the resources that you would like help with: None Currently or been in a relationship where the following occur: No concerns reported THRIVE Score: 0 AUDIT C Alcohol Use Questionnaire (AUDIT-C) 1. How often do you have a drink containing alcohol?: Never 3. How often do you have six or more drinks on one occasion?: Never Total Score: 0 DIANNA-7 AMB Questionnaire DIANNA-7 Date DIANNA - 7 assessed: 09/03/24 Feeling nervous, anxious, or on edge: 0 = Not at all Not being able to stop or control worryin = Not at all Worrying too much about different things: 0 = Not at all Trouble relaxin = Not at all Being so restless that it is hard to sit still: 0 = Not at all Becoming easily annoyed or irritable: 0 = Not at all Feeling afraid as if something awful might happen: 0 = Not at all Total DIANNA-7 score (0-4 normal; 5-9 mild; 10-14 moderate; 15-21 severe): 0 Source: Developed by Drs. Jameson Dasilva, Naty Barroso, aMrck Pa and colleagues, with an educational emeterio from [employer]. DIANNA-7 Assessment Billing DIANNA-7 Assessment Tool: DIANNA-7 Assessment 91307 Review of Systems Const Denies chills, Denies fatigue, Denies fever(s), Denies headache(s) and Denies weakness ENT Denies dizziness and Denies headache(s) Card Denies chest pain, Denies lightheadedness, Denies dyspnea and Denies other (Palpitations) Resp Denies cough, Denies dyspnea, Denies wheezing and Denies other ( shortness of breath) Musc Denies numbness and Denies tingling Neuro Denies dizziness, Denies headache(s), Denies numbness, Denies tingling, Denies paresthesias and Denies weakness Psych Denies anxiety and Denies depression Endo Denies fatigue Aller/Immun Denies wheezing Physical exam (Primary Care) Vital Signs: Last Vital Signs Temp 97.8 F 09/03/24 14:39 Pulse 61 09/03/24 14:39 Resp 16 09/03/24 14:39 BP 152/82 H 09/03/24 14:39 Pulse Ox 98 09/03/24 14:39 Oxygen Delivery Method Room Air 09/03/24 14:39 BMI result Body Mass Index 22.8 Tobacco/Smoking Status: Tobacco use Status Tobacco use date assessed 09/03/24 09/03/24 14:40 Patient Tobacco Use Status Former Tobacco user 09/03/24 14:34 Tobacco use type Cigarette 09/03/24 14:34 e-Cigarette/Vaping Use Never Used 09/03/24 14:34 PHQ-9: PHQ-9 Score PHQ-9: Total score 0 09/03/24 14:42 Depression Screening Interpretation: Negative Thrive Assessment: Date of Thrive Assessment Date Thrive assessed 09/03/24 09/03/24 14:42 Currently or been in a relationship where the following occur: No concerns reported Const General: no acute distress and well developed Nutritional Appearance: well nourished Orientation/consciousness: patient oriented x3 HENMT Head: Yes normocephalic and Yes atraumatic Eyes General: appearance normal, both eyes and all related structures Pupils: Equal, round and reactive pupils present EOM: EOMs intact bilaterally Resp Effort & Inspection: normal respiratory effort Auscultation: clear to auscultation bilaterally Cardio Rate: regular rate Rhythm: regular rhythm Heart sounds: S1 normal heart sound present, S2 normal heart sound present, no gallops, no murmurs and no rubs Neuro General: patient oriented x3 and gait normal Cranial nerves: Yes Equal, round and reactive pupils present Psych Affect: normal affect Coding Level of Care Code Est Pt Level 3 (82755) Diagnoses Hypertension I10 Additional Codes DIANNA-7 Assessment Billing - DIANNA-7 Assessment Tool: DIANNA-7 Assessment 19230 ([id number]) PHQ-9 - 28079 - PHQ-9 Billing: Yes ([id number]) Assessment & Plan Assessment & Plan (1) Hypertension: Code(s): I10 - Essential (primary) hypertension Category: Medical Plan: Blood?pressure?is?still?too?high.??Goal?is?less?than?140/90 Increasing?lisinopril?from?10?mg?daily?to?20?mg?daily Will?recheck?in?a?couple?of?months Medications: Changed From lisinopril 10 mg PO DAILY 30 days 30 tabs 1RF To lisinopril 20 mg PO DAILY 30 days 30 tabs 1RF
[2024-09-03 14:39] VITALS: BP 152/82; PULSE 61; RESP 16; TEMP 36.6; O2SAT 98; BMI 22.8
== END 2024-09-03 14:52 | disposition home or self-care (01) ==
PROVIDERS: PCP Family Medicine; Visit Provider Family Medicine
DX: I10 Essential (primary) hypertension (principal)

== ENCOUNTER → 2024-09-03 14:23 | Outpatient (BNVA) | payer MEDICARE, MEDICAID, SELFPAY | PROVIDERS: PCP Family Medicine; Visit Provider Family Medicine | DX: I10 Essential (primary) hypertension (principal) | CPT/HCPCS: 96127; 99212 ==

== ENCOUNTER 2024-11-05 14:24 | Outpatient (AMB) | payer MEDICARE, MEDICAID, SELFPAY ==
--- NOTE | 2024-11-05 14:27 | A.OFFPC_ITS ---
Vital Signs 11/05/24 14:33 Height 5 ft 10 in Weight 158 lb 6 oz BMI 22.7 BP 160/90 H Blood Pressure Location Rt brachial Position Sitting Respiration 16 Pulse 67 Pulse Source Pulse Oximeter Temp 98.4 F Temp Source Oral Pulse Oximetry (%) 100 Oxygen Delivery Method Room Air Intake Visit Reasons: f/u hypertension Intake Note: patient is scheduled for htn follow up. Dance Choreographer Required: No Allergies haloperidol [From Haldol] Allergy (Severe, Verified 11/05/24 14:32) Involuntary Spasms Penicillins Allergy (Intermediate, Verified 11/05/24 14:32) Hives Tobacco use date assessed: 09/03/24 Dental Screening Dental Screen Date: 09/03/24 HPI f/u hypertension HPI Details 64 y/o male presents to f/u hypertension . Blood pressure today elevated at 160/90, 67p. He is on lisinopril 20mg daily. HPI Comments History of Present Illness Details Documentation assistance for Jung Chery MD, was provided by Baldev Lewis,? Cloth Grader Supervisor on 11/05/2024 at 2:49 PM EST. I, Dr. Chery, have read, observed, and verified documentation. ?? PFSH Medical History No pertinent past medical history Surgical History H/O arthroscopy of right knee Family History Other Substance use disorder Social History Housing: House Patient Tobacco Use Status: Former Tobacco user Tobacco use type: Cigarette Cigarette Packs Per Day: 1 Years Smoked: 25 e-Cigarette/Vaping Use: Never Used Second Hand Smoke Exposure: No service: No Current occupational status: employed Current occupation: retail Current occupational exposures/hazards: No Cognitive needs: No Hearing needs: No Vision needs: Yes Questionnaire Thrive Questionnaire Date Thrive assessed: 08/28/24 I am a: Patient What is your living situation today?: I have a steady place to live Within the past 12 months, did the food you bought not last and you didn't have the money to get more?: I choose not to answer this question Within the past 12 months, did you worry whether your food would run out before you got money to buy more?: Never true Do you have trouble paying for medicines?: No Do you have trouble getting transportation to medical appointments?: No Do you have trouble paying your heating and electricity bill?: No Do you have trouble taking care of your child, family member or friend?: No Do you have trouble with day-to-day activities such as bathing, preparing meals, shopping, managing finances, etc.?: No Are you currently unemployed and looking for a job?: No Are you interested in more education?: I choose not to answer this question Please select the resources that you would like help with: None Currently or been in a relationship where the following occur: No concerns reported THRIVE Score: 0 DIANNA-7 AMB Questionnaire DIANNA-7 Date DIANNA - 7 assessed: 09/03/24 Source: Developed by Drs. Jameson Dasilva, Naty Barroso, Marck Pa and colleagues, with an educational emeterio from [email or web address]. Review of Systems Const Denies chills, Denies fatigue, Denies fever(s), Denies headache(s) and Denies weakness ENT Denies dizziness and Denies headache(s) Card Denies dyspnea Resp Denies cough, Denies dyspnea, Denies wheezing and Denies other (shortness of breath) Musc Denies numbness and Denies tingling Neuro Denies dizziness, Denies headache(s), Denies numbness, Denies tingling and Denies weakness Psych Denies anxiety and Denies depression Endo Denies fatigue Aller/Immun Denies wheezing Physical exam (Primary Care) Vital Signs: Last Vital Signs Temp 98.4 F 11/05/24 14:33 Pulse 67 11/05/24 14:33 Resp 16 11/05/24 14:33 BP 160/90 H 11/05/24 14:33 Pulse Ox 100 11/05/24 14:33 Oxygen Delivery Method Room Air 11/05/24 14:33 BMI result Body Mass Index 22.7 Tobacco/Smoking Status: Tobacco use Status Tobacco use date assessed 09/03/24 11/05/24 14:28 Patient Tobacco Use Status Former Tobacco user 11/05/24 14:28 Tobacco use type Cigarette 11/05/24 14:28 e-Cigarette/Vaping Use Never Used 11/05/24 14:28 Thrive Assessment: Date of Thrive Assessment Date Thrive assessed 08/28/24 11/05/24 14:28 Currently or been in a relationship where the following occur: No concerns reported Const General: well developed; No acute distress Nutritional Appearance: well nourished Orientation/consciousness: patient oriented x3 HENMO Head: Yes normocephalic and Yes atraumatic Eyes General: appearance normal, both eyes and all related structures Pupils: Equal, round and reactive pupils present EOM: EOMs intact bilaterally Resp Effort & Inspection: normal respiratory effort Neuro General: patient oriented x3 and gait normal Cranial nerves: Yes Equal, round and reactive pupils present Psych Affect: normal affect Coding Level of Care Code Est Pt Level 3 (05650) Diagnoses Hypertension I10 Assessment & Plan Assessment & Plan (1) Hypertension: Code(s): I10 - Essential (primary) hypertension Category: Medical Plan: Blood?pressure?remains?elevated?despite?lisinopril?20?mg?daily Will?add?hydrochlorothiazide EKG?today?shows: ?Normal?sinus?rhythm,?normal?axis,?no?hypertrophy,?no?ST-T-wave?changes We?discussed?that?if?were?able?to?get?his?blood?pressure?under?control?with?the? lisinopril?and?hydrochlorothiazide,?we?may?be?able?to?use?a?combo?pill. Orders: Orders AMB EKG-In Office Today I10 - Essential (primary) hypertension Medications: New hydrochlorothiazide 25 mg PO QAM 90 days 90 tabs 3RF
[2024-11-05 14:33] VITALS: BP 160/90; PULSE 67; RESP 16; TEMP 36.9; O2SAT 100; BMI 22.7
--- OUTSIDE RECORDS SUMMARY | 2024-11-05 16:53 | XMS_ITS | Clinical Summary ---
Author Organization [facility] Address [address] [place] [address] Care Team Providers Care Management Professor Name Role Phone Daniel Oviedo MD Primary Care Provider [phone] Allergies Active Allergy Reactions Criticality Noted Date Comments Haloperidol 03/20/2021 Penicillins 03/20/2021 Medications Medication Sig Dispensed Refills Start Date End Date Status amLODIPine-benazepril (LOTREL 5-10) 5-10 MG per capsule Take 1 capsule by mouth daily. 0 02/06/2021 Active benztropine (COGENTIN) 0.5 MG tablet Take 0.5 mg by mouth daily. 0 01/14/2021 Active perphenazine (TRILAFON) 2 MG tablet Take 2 mg by mouth 2 (two) times a day. 0 03/09/2021 Active Active Problems Problem Noted Date Diagnosed Date Effusion of right knee joint 06/05/2021 Arthritis of knee, right 06/05/2021 Social History Tobacco Use Types Packs/Day Years Used Date Smoking Tobacco: Never Assessed Sex and Gender Information Value Date Recorded Sex Assigned at Not on file Gender Identity Not on file Sexual Orientation Not on file Job Start Date Occupation Industry Not on file Not on file Not on file Last Filed Vital Signs Vital Sign Reading Time Taken Comments Blood Pressure - - Pulse - - Temperature - - Respiratory Rate - - Oxygen Saturation - - Inhaled Oxygen Concentration - - Weight 76.2 kg (168 lb) 06/05/2021 2:25 PM EDT Height 177.8 cm (5' 10 ) 06/05/2021 2:25 PM EDT Body Mass Index 24.11 06/05/2021 2:25 PM EDT Plan of Treatment Health Maintenance Due Date Last Done Comments Hepatitis C Screening 1960 COVID-19 Vaccine (#1) 1960 Depression Screening 1972 Preventative Health Evaluation 1978 DTap / Tdap / Td (1 - Tdap) 1979 Colon Cancer Screening (Colonoscopy) 2005 Shingrix-Zoster Vaccine (1 of 2) 2010 Influenza Vaccine (#1) 2024 Pneumococcal Vaccine (1 of 1 - PCV) 2025 RSV Adult > 60+ Yrs or Pregn ant (1 - 1-dose 75+ series) 2035 Hepatitis B Vaccines Aged Out No long er eligible based on patient's age to complete this topic Pneumococcal Vaccine Aged Out No long er eligible based on patient's age to complete this topic RSV Ped < 20 months Aged Out No longe r eligible based on patient's age to complete this topic Care Teams Management Professor Relationship Specialty Start Date End Date Daniel Oviedo MD [address] [place] [id number] PCP - General Internal Medicine 02/09/21
== END 2024-11-05 15:07 | disposition home or self-care (01) ==
LOC: HO.HMCFM 14:25
PROVIDERS: PCP Family Medicine; Visit Provider Family Medicine
DX: I10 Essential (primary) hypertension (principal)

== ENCOUNTER → 2024-11-05 14:24 | Outpatient (BNVA) | payer MEDICARE, MEDICAID, SELFPAY | PROVIDERS: PCP Family Medicine; Visit Provider Family Medicine | DX: I10 Essential (primary) hypertension (principal) | CPT/HCPCS: 99212 ==

== ENCOUNTER 2025-01-30 15:57 | Outpatient (AMB) | payer MEDICARE, MEDICAID, SELFPAY ==
--- NOTE | 2025-01-30 16:32 | A.OFFPC_ITS ---
Vital Signs 01/30/25 16:36 Height 5 ft 10 in Weight 159 lb 2 oz BMI 22.8 BP 130/80 Blood Pressure Location Rt brachial Position Sitting Respiration 16 Pulse 62 Pulse Source Pulse Oximeter Temp 97.8 F Temp Source Oral Pulse Oximetry (%) 100 Oxygen Delivery Method Room Air Intake Visit Reasons: f/u HTN Intake Note: patient is scheduled for htn Interactive Marketing Strategist Required: No Allergies haloperidol [From Haldol] Allergy (Severe, Verified 01/30/25 16:36) Involuntary Spasms Penicillins Allergy (Intermediate, Verified 01/30/25 16:36) Hives Medication List - Last Reconciled 01/30/25 by Jung Chery MD benztropine 0.5 mg PO DAILY hydrochlorothiazide 25 mg PO QAM 90 days lisinopril 20 mg PO DAILY 90 days perphenazine 2 mg PO BID Tobacco use date assessed: 09/03/24 Dental Screening Dental Screen Date: 09/03/24 HPI f/u HTN HPI Details 64 y/o male presents to f/u hypertension . Had added hydrochlorothiazide last office visit. Blood pressure today 130/80, 62p. He is on lisinopril 20mg, hydrochlorothiazide 25mg daily. HPI Comments History of Present Illness Details Documentation assistance for Jung Chery MD, was provided by Baldev Lewis,? Child Development Specialist on 01/30/2025 at 5:06 PM EST. I, Dr. Chery, have read, observed, and verified documentation. ?? PFSH Medical History No pertinent past medical history Surgical History H/O arthroscopy of right knee Family History Other Substance use disorder Social History Housing: House Patient Tobacco Use Status: Former Tobacco user Tobacco use type: Cigarette Cigarette Packs Per Day: 1 Years Smoked: 25 e-Cigarette/Vaping Use: Never Used Second Hand Smoke Exposure: No service: No Current occupational status: employed Current occupation: retail Current occupational exposures/hazards: No Cognitive needs: No Hearing needs: No Vision needs: Yes Questionnaire Thrive Questionnaire Date Thrive assessed: 08/28/24 I am a: Patient What is your living situation today?: I have a steady place to live Within the past 12 months, did the food you bought not last and you didn't have the money to get more?: I choose not to answer this question Within the past 12 months, did you worry whether your food would run out before you got money to buy more?: Never true Do you have trouble paying for medicines?: No Do you have trouble getting transportation to medical appointments?: No Do you have trouble paying your heating and electricity bill?: No Do you have trouble taking care of your child, family member or friend?: No Do you have trouble with day-to-day activities such as bathing, preparing meals, shopping, managing finances, etc.?: No Are you currently unemployed and looking for a job?: No Are you interested in more education?: I choose not to answer this question Please select the resources that you would like help with: None Currently or been in a relationship where the following occur: No concerns reported THRIVE Score: 0 DIANNA-7 AMB Questionnaire DIANNA-7 Date DIANNA - 7 assessed: 09/03/24 Source: Developed by Drs. Jameson Dasilva, Naty Barroso, Marck Pa and colleagues, with an educational emeterio from [employer]. Review of Systems Const Denies chills, Denies fatigue, Denies fever(s), Denies headache(s) and Denies weakness ENT Denies dizziness and Denies headache(s) Card Denies dyspnea Resp Denies cough, Denies dyspnea, Denies wheezing and Denies other (shortness of breath) Musc Denies numbness and Denies tingling Neuro Denies dizziness, Denies headache(s), Denies numbness, Denies tingling and Denies weakness Psych Denies anxiety and Denies depression Endo Denies fatigue Aller/Immun Denies wheezing Physical exam (Primary Care) Vital Signs: Last Vital Signs Temp 97.8 F 01/30/25 16:36 Pulse 62 01/30/25 16:36 Resp 16 01/30/25 16:36 BP 130/80 01/30/25 16:36 Pulse Ox 100 01/30/25 16:36 Oxygen Delivery Method Room Air 01/30/25 16:36 BMI result Body Mass Index 22.8 Tobacco/Smoking Status: Tobacco use Status Tobacco use date assessed 09/03/24 01/30/25 16:33 Patient Tobacco Use Status Former Tobacco user 01/30/25 16:33 Tobacco use type Cigarette 01/30/25 16:33 e-Cigarette/Vaping Use Never Used 01/30/25 16:33 Thrive Assessment: Date of Thrive Assessment Date Thrive assessed 08/28/24 01/30/25 16:33 Currently or been in a relationship where the following occur: No concerns reported Const General: well developed; No acute distress Nutritional Appearance: well nourished Orientation/consciousness: patient oriented x3 [facility] Head: Yes normocephalic and Yes atraumatic Eyes General: appearance normal, both eyes and all related structures Pupils: Equal, round and reactive pupils present EOM: EOMs intact bilaterally Resp Effort & Inspection: normal respiratory effort Auscultation: clear to auscultation bilaterally Cardio Rate: regular rate Rhythm: regular rhythm Heart sounds: S1 normal heart sound present, S2 normal heart sound present, no gallops, no murmurs and no rubs Neuro General: patient oriented x3 and gait normal Cranial nerves: Yes Equal, round and reactive pupils present Psych Affect: normal affect Coding Level of Care Code Est Pt Level 3 (17061) Diagnoses Hypertension I10 Assessment & Plan Assessment & Plan (1) Hypertension: Code(s): I10 - Essential (primary) hypertension Category: Medical Plan: Blood?pressure?130/80?is?controlled.??Goal?is?less?than?140/90 Continue?current?medications. Will?recheck?again?in?a?few?months?and?if?still?controlled,?can?switch?to?a?comb o?pill Medications: Changed From lisinopril 20 mg PO DAILY 30 days 30 tabs 1RF To lisinopril 20 mg PO DAILY 90 tabs 3RF 90 days
[2025-01-30 16:36] VITALS: BP 130/80; PULSE 62; RESP 16; TEMP 36.6; O2SAT 100; BMI 22.8
--- OUTSIDE RECORDS SUMMARY | 2025-01-30 18:10 | XMS_ITS | Clinical Summary ---
Author Organization [facility] Address [address] [place] [address] Care Team Providers Care Loading And Unloading Supervisor Name Role Phone Daniel Oviedo MD Primary Care Provider Allergies Active Allergy Reactions Criticality Noted Date [...] Vaccine (1 of 2) 2010 Influenza Vaccine (Season Ended) 2025 Pneumococcal Vaccine (1 of 1 - PCV) [...] age to complete this topic Care Teams Loading And Unloading Supervisor Relationship Specialty Start Date End Date Daniel Oviedo MD [address] [place] [id number] PCP - General Internal Medicine 02/09/21
== END 2025-01-30 17:11 | disposition home or self-care (01) ==
LOC: HO.HMCFM 15:58
PROVIDERS: PCP Family Medicine; Visit Provider Family Medicine
DX: I10 Essential (primary) hypertension (principal)

== ENCOUNTER → 2025-01-30 15:57 | Outpatient (BNVA) | payer MEDICARE, MEDICAID, SELFPAY | PROVIDERS: PCP Family Medicine; Visit Provider Family Medicine | DX: I10 Essential (primary) hypertension (principal); Z87.891 Personal history of nicotine dependence | CPT/HCPCS: 99212 ==

== ENCOUNTER 2025-05-08 09:13 | Outpatient (AMB) | payer MEDICARE, MEDICAID, SELFPAY ==
--- NOTE | 2025-05-08 09:18 | MHC.PC.OV ---
Vital Signs 05/08/25 09:22 Height 5 ft 10 in Weight 159 lb 6 oz BMI 22.9 BP 151/76 H Blood Pressure Location Rt brachial Position Sitting Respiration 16 Pulse 56 Pulse Source Pulse Oximeter Temp 97.6 F Temp Source Oral Pulse Oximetry (%) 100 Oxygen Delivery Method Room Air Intake Visit Reasons: f/u htn Intake Note: patient here for follow HTN Web Project Manager Required: No Allergies haloperidol (From Haldol) Allergy (Severe, Verified 05/08/25 09:21) Involuntary Spasms Penicillins Allergy (Intermediate, Verified 05/08/25 09:21) Hives Medication List - Last Reconciled 05/08/25 by Jung Chery MD benztropine 0.5 mg PO DAILY hydrochlorothiazide 25 mg PO QAM 90 days lisinopril 20 mg PO DAILY 90 days perphenazine 2 mg PO BID Tobacco use date assessed: 05/08/25 Fall risk assessment: No Falls in past year Last assessed Fall Risk: 05/08/25 Dental Screening Dental Screen Date: 05/08/25 Did you have a dental visit in the last 12 months?: No Did you have a dental problem in the last 6 months where you did not have access to dental care?: No Was dental information given to patient?: No HPI f/u htn HPI Details 65 y/o male presents to f/u hypertension. BP today 151/76, 56p. He is on HCTZ 25mg, lisinopril 20 mg daily. He continues taking his meds as prescribed. HPI Comments History of Present Illness Details Documentation assistance for Jung Chery MD, was provided by Baldev Lewis,? Dye Range Operator [employer] on at 9:31 AM EST. Crocker, Dr. Chery, have read, observed, and verified documentation. ?? PFSH Medical History No pertinent past medical history Surgical History H/O arthroscopy of right knee Family History Other Substance use disorder Social History Housing: House Patient Tobacco Use Status: Former Tobacco user Tobacco use type: Cigarette Cigarette Packs Per Day: 1 Years Smoked: 25 e-Cigarette/Vaping Use: Never Used Second Hand Smoke Exposure: No service: No Current occupational status: employed Current occupation: retail Current occupational exposures/hazards: No Cognitive needs: No Hearing needs: No Vision needs: Yes Questionnaire Thrive Questionnaire Date Thrive assessed: 08/28/24 I am a: Patient What is your living situation today?: I have a steady place to live Within the past 12 months, did the food you bought not last and you didn't have the money to get more?: I choose not to answer this question Within the past 12 months, did you worry whether your food would run out before you got money to buy more?: Never true Do you have trouble paying for medicines?: No Do you have trouble getting transportation to medical appointments?: No Do you have trouble paying your heating and electricity bill?: No Do you have trouble taking care of your child, family member or friend?: No Do you have trouble with day-to-day activities such as bathing, preparing meals, shopping, managing finances, etc.?: No Are you currently unemployed and looking for a job?: No Are you interested in more education?: I choose not to answer this question Please select the resources that you would like help with: None Currently or been in a relationship where the following occur: No concerns reported THRIVE Score: 0 AUDIT C Alcohol Use Questionnaire (AUDIT-C) 2. How many drinks containing alcohol do you have on a typical day when you are drinking?: 1 or 2 Total Score: 0 DIANNA-7 AMB Questionnaire DIANNA-7 Date DIANNA - 7 assessed: 09/03/24 Source: Developed by Drs. Jameson Dasilva, Naty Barroso, Marck Pa and colleagues, with an educational emeterio from [employer]. Review of Systems Const Denies chills, Denies fatigue, Denies fever(s), Denies headache(s) and Denies weakness ENT Denies dizziness and Denies headache(s) Card Denies dyspnea Resp Denies cough, Denies dyspnea, Denies wheezing and Denies other (shortness of breath) Musc Denies numbness and Denies tingling Neuro Denies dizziness, Denies headache(s), Denies numbness, Denies tingling and Denies weakness Psych Denies anxiety and Denies depression Endo Denies fatigue Aller/Immun Denies wheezing Physical exam (Primary Care) Vital Signs: Last Vital Signs Temp 97.6 F 05/08/25 09:22 Pulse 56 05/08/25 09:22 Resp 16 05/08/25 09:22 BP 151/76 H 05/08/25 09:22 Pulse Ox 100 05/08/25 09:22 Oxygen Delivery Method Room Air 05/08/25 09:22 BMI result Body Mass Index 22.9 Tobacco/Smoking Status: Tobacco use Status Tobacco use date assessed 05/08/25 05/08/25 09:26 Patient Tobacco Use Status Former Tobacco user 05/08/25 09:20 Tobacco use type Cigarette 05/08/25 09:20 e-Cigarette/Vaping Use Never Used 05/08/25 09:20 Thrive Assessment: Date of Thrive Assessment Date Thrive assessed 08/28/24 05/08/25 09:20 Currently or been in a relationship where the following occur: No concerns reported Const General: well developed; No acute distress Nutritional Appearance: well nourished Orientation/consciousness: patient oriented x3 HENMT Head: Yes normocephalic and Yes atraumatic Eyes General: appearance normal, both eyes and all related structures Pupils: Equal, round and reactive pupils present EOM: EOMs intact bilaterally Resp Effort & Inspection: normal respiratory effort Auscultation: clear to auscultation bilaterally Cardio Rate: regular rate Rhythm: regular rhythm Heart sounds: S1 normal heart sound present, S2 normal heart sound present, no gallops, no murmurs and no rubs Neuro General: patient oriented x3 and gait normal Cranial nerves: Yes Equal, round and reactive pupils present Psych Affect: normal affect Coding Level of Care Code Est Pt Level 3 (59919) Diagnoses Hypertension I10 Assessment & Plan Assessment & Plan (1) Hypertension: Code(s): I10 - Essential (primary) hypertension Category: Medical Plan: Blood pressure is too high. Goal is less than 140/90 He is taking lisinopril 20 mg and hydrochlorothiazide 25 mg, daily Will combine these as a combo pill and add amlodipine 5 mg daily We can follow-up at his next visit in about 2 months Orders: Orders Complete Blood Count Auto Diff Today Z00.00 - Encounter for general adult medical examination without abnormal findings Lipid Panel Today Z00.00 - Encounter for general adult medical examination without abnormal findings TSH reflex Free T4 Today Z00.00 - Encounter for general adult medical examination without abnormal findings UA CC w/rflx Micro + Cult Today Z00.00 - Encounter for general adult medical examination without abnormal findings Vitamin D 25-OH Total Today E55.9 - Vitamin D deficiency, unspecified Comprehensive Peetz. Panel Fast Today Z00.00 - Encounter for general adult medical examination without abnormal findings Microalbumin, Random (w Creat) Today I10 - Essential (primary) hypertension Prostate Specific Antigen Scr Today Z12.5 - Encounter for screening for malignant neoplasm of prostate Medications: New amlodipine 5 mg PO DAILY 30 tabs 3RF 30 days lisinopril-hydrochlorothiazide 20-25 mg 1 tab PO DAILY 90 tabs 3RF 90 days Discontinued hydrochlorothiazide Discontinued Reason: Doctor's Order 25 mg PO QAM 90 days 90 tabs 3RF lisinopril Discontinued Reason: Doctor's Order 20 mg PO DAILY 90 days 90 tabs 3RF
[2025-05-08 09:22] VITALS: BP 151/76; PULSE 56; RESP 16; TEMP 36.4; O2SAT 100; BMI 22.9
--- OUTSIDE RECORDS SUMMARY | 2025-05-08 10:51 | XMS_ITS | Clinical Summary ---
Author Organization [facility] Address [address] [place] [address] Care Team Providers Care Tag Clerk Name Role Phone Daniel Oviedo MD Primary Care Provider [phone] Allergies Active Allergy Reactions Criticality Noted Date [...] (1 of 2) 2010 Influenza Vaccine (#1) 2025 Fall Risk Assessment 2025 Pneumococcal Vaccine (1 of 1 - [...] age to complete this topic Care Teams Tag Clerk Relationship Specialty Start Date End Date Daniel Oviedo MD [address] [place] [address] PCP - General Internal Medicine 02/09/21
== END 2025-05-08 09:38 | disposition home or self-care (01) ==
LOC: HO.HMCFM 09:13
PROVIDERS: PCP Family Medicine; Visit Provider Family Medicine
DX: I10 Essential (primary) hypertension (principal)

== ENCOUNTER → 2025-05-08 09:13 | Outpatient (BNVA) | payer MEDICARE, MEDICAID, SELFPAY | PROVIDERS: PCP Family Medicine; Visit Provider Family Medicine | DX: I10 Essential (primary) hypertension (principal); E55.9 Vitamin D deficiency, unspecified | CPT/HCPCS: 99212 ==

== ENCOUNTER 2025-05-17 11:48 | Outpatient (REF) | payer MEDICARE, SELFPAY ==
--- OUTSIDE RECORDS SUMMARY | 2025-05-17 13:41 | XMS_ITS | Clinical Summary ---
Author Organization [facility] Address [address] [place] [address] Care Team Providers Care Fire Marshal Name Role Phone Daniel Oviedo MD Primary Care Provider [phone] Allergies Active Allergy Reactions Criticality Noted Date [...] age to complete this topic Care Teams Fire Marshal Relationship Specialty Start Date End Date Daniel Oviedo MD [address] [place] [address] PCP - General Internal Medicine 02/09/21
[2025-05-17 14:21] LABS: MANUAL DIFF FLAG NO
[2025-05-17 14:24] LABS: Appearance Urine Clear; Glucose Urine UA Negative (Negative); PH 7.0 (5.0-9.0); Specific Gravity - Urine 1.010 (1.005-1.025)
[2025-05-17 14:36] LABS: Hematocrit 33.4 % (42.0-52.0); Hemoglobin 11.6 g/dl (14.0-18.0); Imm Gran Abs Auto 0.02 X10*3/uL (0.00-0.03); Imm Gran Pct Auto 0.3 % (0.0-0.4); Lymphocytes Absolute Auto 1.6 X10*3/uL (1.2-4.9); Mean Corpuscular HGB Conc 34.7 g/dl (31.0-36.0); Mean Corpuscular Hemoglobin 30.9 pg (27.0-33.0); Mean Corpuscular Volume 88.8 fL (80.0-98.0); NRBC Abs Auto 0.000 X10*3/uL (0.0-0.012); NRBC Pct Auto 0.0 /100WBC (0.0-0.2); Platelet Count 374 X10*3/uL (160-400); Red Blood Count 3.76 X10*6/uL (4.60-5.80); White Blood Count 6.9 X10*3/uL (4.8-10.8)
[2025-05-17 15:09] LABS: Alanine Aminotransferase 21 U/L (0-40); Albumin Level 4.2 g/dL (3.5-5.0); Alkaline Phosphatase 109 U/L (39-117); Anion Gap 9 (12-20); Aspartate Amino Transferase 29 U/L (5-37); Blood Urea Nitrogen 7 mg/dL (9-16); Calcium 8.9 mg/dL (8.4-10.2); Carbon Dioxide 28 mmol/L (22-29); Chloride 98 mmol/L (96-108); Cholesterol 141 mg/dL (<200); Estimated Glomerular Filt Rate > 60; HDL Cholesterol 66 mg/dL (>40); Potassium 4.0 mmol/L (3.3-5.1); Sodium 131 mmol/L (135-145); Total Protein 6.7 g/dL (6.5-8.0); Triglycerides 48 mg/dL (<150)
[2025-05-17 15:11] LABS: Microalbum/Creatinine Ratio Ur 5.7 ug/mg cr (<30)
== END 2025-05-17 11:49 | disposition home or self-care (01) ==
LOC: HO.WFDLDS 11:48
PROVIDERS: Visit Provider Family Medicine
DX: Z00.00 Encounter for general adult medical examination without abnormal findings (principal); I10 Essential (primary) hypertension; E55.9 Vitamin D deficiency, unspecified; Z12.5 Encounter for screening for malignant neoplasm of prostate
CPT/HCPCS: 36415; 80053; 80061; 81003; 82043; 82306; 82570; 84153; 84443; 85025

== ENCOUNTER 2025-07-09 09:33 | Outpatient (AMB) | payer MEDICARE, MEDICAID, SELFPAY ==
--- NOTE | 2025-07-09 09:54 | A.OFFPC_ITS ---
Vital Signs 07/09/25 10:00 Height 5 ft 10 in BP 120/82 Blood Pressure Location Rt brachial Position Sitting Respiration 16 Pulse 64 Pulse Source Pulse Oximeter Temp 96.9 F Temp Source Temporal Artery Scan Pulse Oximetry (%) 100 Oxygen Delivery Method Room Air Intake Visit Reasons: f/u Labs & Health Maint 15 min Intake Note: Carlito presents in the office today for a follow up to his labs. Allergies haloperidol (From Haldol) Allergy (Severe, Verified 07/09/25 09:59) Involuntary Spasms Penicillins Allergy (Intermediate, Verified 07/09/25 09:59) Hives Medication List - Last Reconciled 07/09/25 by Jung Chrey MD amlodipine 5 mg PO DAILY 30 days benztropine 0.5 mg PO DAILY lisinopril-hydrochlorothiazide 20-25 mg 1 tab PO DAILY 90 days multivitamin 1 tab PO QAM 90 days perphenazine 2 mg PO BID Tobacco use date assessed: 07/09/25 Dental Screening Dental Screen Date: 07/09/25 Did you have a dental visit in the last 12 months?: No Did you have a dental problem in the last 6 months where you did not have access to dental care?: No Was dental information given to patient?: Patient declined HPI f/u Labs & Health Maint 15 min HPI Details 65 y/o male presents to f/u hypertension , labs, health maintenance. Blood pressure today 120/82, 64p. He is on lisinopril-HCTZ 20-25mg daily, amlodipine 5mg daily. Labs drawn 05/17/25. Reviewed labs with pt. Triglycerides 48. TC 141. LDL 66. HDL 66. PSA 0.69. Vitamin D low at 27.4. Persistent mild anemia. He is on perphenazine 2mg b.i.d. HPI Comments History of Present Illness Details Documentation assistance for Jung Chery MD, was provided by Baldev Lewis,? Professor Of Special Education on 07/09/2025 at 10:28 AM EST. I, Dr. Chery, have read, observed, and verified documentation. ?? [facility] Medical History No pertinent past medical history Surgical History H/O arthroscopy of right knee Family History Other Substance use disorder Social History (Updated 07/09/25 @ 10:00 by Lauren Buitrago CMA) Housing: House Alcohol intake: never Patient Tobacco Use Status: Former Tobacco user Tobacco use type: Cigarette Cigarette Packs Per Day: 1 Years Smoked: 25 e-Cigarette/Vaping Use: Never Used Second Hand Smoke Exposure: No service: No Current occupational status: employed Current occupation: retail Current occupational exposures/hazards: No Cognitive needs: No Hearing needs: No Vision needs: Yes Questionnaire Thrive Questionnaire Date Thrive assessed: 08/28/24 I am a: Patient What is your living situation today?: I have a steady place to live Within the past 12 months, did the food you bought not last and you didn't have the money to get more?: I choose not to answer this question Within the past 12 months, did you worry whether your food would run out before you got money to buy more?: Never true Do you have trouble paying for medicines?: No Do you have trouble getting transportation to medical appointments?: No Do you have trouble paying your heating and electricity bill?: No Do you have trouble taking care of your child, family member or friend?: No Do you have trouble with day-to-day activities such as bathing, preparing meals, shopping, managing finances, etc.?: No Are you currently unemployed and looking for a job?: No Are you interested in more education?: I choose not to answer this question Please select the resources that you would like help with: None Currently or been in a relationship where the following occur: No concerns repo rted THRIVE Score: 0 DIANNA-7 AMB Questionnaire DIANNA-7 Date DIANNA - 7 assessed: 09/03/24 Source: Developed by Drs. Jameson Dasilva, Naty Barroso, Marck Pa and colleagues, with an educational emeterio from [email or web address]. Review of Systems Const Denies chills, Denies fatigue, Denies fever(s), Denies headache(s) and Denies weakness ENT Denies dizziness and Denies headache(s) Card Denies dyspnea Resp Denies cough, Denies dyspnea, Denies wheezing and Denies other (shortness of breath) Musc Denies numbness and Denies tingling Neuro Denies dizziness, Denies headache(s), Denies numbness, Denies tingling and Denies weakness Psych Denies anxiety and Denies depression Endo Denies fatigue Aller/Immun Denies wheezing Physical exam (Primary Care) Vital Signs: Last Vital Signs Temp 96.9 F 07/09/25 10:00 Pulse 64 07/09/25 10:00 Resp 16 07/09/25 10:00 BP 120/82 07/09/25 10:00 Pulse Ox 100 07/09/25 10:00 Oxygen Delivery Method Room Air 07/09/25 10:00 Tobacco/Smoking Status: Tobacco use Status Tobacco use date assessed 07/09/25 07/09/25 10:03 Patient Tobacco Use Status Former Tobacco user 07/09/25 10:00 Tobacco use type Cigarette 07/09/25 10:00 e-Cigarette/Vaping Use Never Used 07/09/25 10:00 Thrive Assessment: Date of Thrive Assessment Date Thrive assessed 08/28/24 07/09/25 09:56 Currently or been in a relationship where the following occur: No concerns reported Const General: well developed; No acute distress Nutritional Appearance: well nourished Orientation/consciousness: patient oriented x3 HENMT Head: Yes normocephalic and Yes atraumatic Eyes General: appearance normal, both eyes and all related structures Pupils: Equal, round and reactive pupils present EOM: EOMs intact bilaterally Resp Effort & Inspection: normal respiratory effort Auscultation: clear to auscultation bilaterally Cardio Rate: regular rate Rhythm: regular rhythm Heart sounds: S1 normal heart sound present, S2 normal heart sound present, no gallops, no murmurs and no rubs Neuro General: patient oriented x3 and gait normal Cranial nerves: Yes Equal, round and reactive pupils present Psych Affect: normal affect Coding Level of Care Code Est Pt Level 3 (82564) Diagnoses Hypertension I10 Low vitamin D level R79.89 Mild anemia D64.9 Screening for colon cancer Z12.11 Screening for prostate cancer Z12.5 Assessment & Plan Assessment & Plan (1) Hypertension: Code(s): I10 - Essential (primary) hypertension Category: Medical Plan: Blood pressure now well controlled. Goal is less than 140/90 Had added amlodipine to his regimen and he is tolerating this well. He continues lisinopril and hydrochlorothiazide as combo pill (2) Low vitamin D level: Code(s): R79.89 - Other specified abnormal findings of blood chemistry Category: Medical Plan: Vitamin-D level is mildly low He would benefit from a multivitamin with vitamin-D (3) Mild anemia: Code(s): D64.9 - Anemia, unspecified Category: Medical Plan: Persistent mild anemia. He is on perphenazine b.i.d. Will continue to monitor anemia (4) Screening for colon cancer: Code(s): Z12.11 - Encounter for screening for malignant neoplasm of colon Category: Medical Plan: Patient would like a Cologuard test Ordered (5) Screening for prostate cancer: Code(s): Z12.5 - Encounter for screening for malignant neoplasm of prostate Category: Medical Plan: PSA was within normal range. Will continue annual screening Orders: Referrals Cologuard Test Z12.11 - Encounter for screening for malignant neoplasm of colon, Z12.12 - Encounter for screening for malignant neoplasm of rectum Medications: New multivitamin 1 tab PO QAM 90 tabs 3RF 90 days
[2025-07-09 10:00] VITALS: BP 120/82; PULSE 64; RESP 16; TEMP 36.1; O2SAT 100
== END 2025-07-09 11:01 | disposition home or self-care (01) ==
LOC: HO.HMCFM 09:34
PROVIDERS: PCP Family Medicine; Visit Provider Family Medicine
DX: I10 Essential (primary) hypertension (principal); R79.89 Other specified abnormal findings of blood chemistry; D64.9 Anemia, unspecified; Z12.11 Encounter for screening for malignant neoplasm of colon; Z12.5 Encounter for screening for malignant neoplasm of prostate

== ENCOUNTER → 2025-07-09 09:33 | Outpatient (BNVA) | payer MEDICARE, SELFPAY | PROVIDERS: PCP Family Medicine; Visit Provider Family Medicine | DX: Z12.11 Encounter for screening for malignant neoplasm of colon (principal); Z12.5 Encounter for screening for malignant neoplasm of prostate; I10 Essential (primary) hypertension; D64.9 Anemia, unspecified; R79.89 Other specified abnormal findings of blood chemistry | CPT/HCPCS: 99212 ==